=== PATIENT | female | born 1980 | race Caucasian/White ===

== ENCOUNTER 2017-07-21 14:57 | Observation (INO) ==
--- NOTE | 2017-07-21 22:09 | Internal Med History&Physical ---
<Kanwal Gerardo H - Last Filed: 07/21/17 23:15> Date of Encounter: 07/21/17 Time of Encounter: 22:00 Internal Medicine - H&P: HPI Chief complaint: Nausea, vomitting, and diarrhea Admitted From: Emergency Dept Plans for Post Hospital Care: Home History of present illness: Ms. Christian is a 36 year old female with PMHX of HLD, DM2, hypothyroidism, bipolar disorder, schizophrenia, and recent hospitalization end of June 2017 for pyelonephritis presented to [facility] on 07/21/2017 for 2.5 week history of watery diarrhea, nausea and vomitting. Patient describes an approximately 2-1/2 week history of approximately 10 watery dark-colored bowel movements per day. She reports intermittent nausea and occasional vomiting. She reports a few days of subjective fevers last week. She reports some exertional shortness of breath, but no orthopnea or lower extremity edema. She does also report a cough for the past week. She denies any chest pain, palpitations, or diaphoresis. She also reports dysuria, but denies gross hematuria. She denies any focal weaknesses, numbness, or paresthesia. She reports intermittent dizziness and fatigue. Patient states she was discharged home in early July with a course of levaquin for her UTI that she completed. She has seen her PCP, Dr. Borrero, several times since then as she reports recurrence of her UTI. She has underwent a full course of bactrim since then in addition to a rocephin shot. She finished her last dose of bactrim today. In [place] ED, patient's laboratory analysis demonstrated a WBC of 15.2, Hgb of 11.5, platelets of 514. Potassium was 2.9, bicarbonate 18, creatinine 1.46 and GFR 43. CRP was 1.2. Urinalysis demonstrated a large amount of leukocyte esterase, but negative nitrates. An x-ray of her abdomen was negative for acute process, or obstruction. Patient was given 40 mEq of oral potassium in a dose of meropenem while in the emergency department. Patient was unable to provide a stool sample for stool analysis welfare. Patient was subsequently transferred to [facility] earlier this evening. Past Med Surg Social Fam HX - Past Medical History Attestation: Yes The following information was validated with the patient. Source: patient Medical history: diabetes, GERD, hyperlipidemia, hypertension, thyroid disease Psychiatric history: anxiety, bipolar, depression - Past Surgical History Surgical History: cholecystectomy, hysterectomy - Social History Smoking Status: Never smoker Smokeless Tobacco Status: No Alcohol use: occasionally Drug use: none - Family History Father Living Status: Age at : 40 Cause of : Heart attack Hx Family Cardiac Disorders: Yes Internal Medicine - H&P: Meds Atomoxetine HCl [Strattera] 80 mg PO DAILY 11/23/16 [History] Fenofibrate Nanocrystallized [Triglide] 160 mg PO DAILY 11/23/16 [History] Levothyroxine [Synthroid] 75 mcg PO 0630 11/23/16 [History] [place] Carbonate 300 mg PO 1200 11/23/16 [History] [place] Carbonate 450 mg PO HS 11/23/16 [History] Loxapine Succinate [Loxapine] 50 mg PO HS 11/23/16 [History] Omeprazole [PriLOSEC] 20 mg PO BID 11/23/16 [History] Ondansetron HCl [Zofran] 4 mg PO Q8H 11/23/16 [History] SUMAtriptan Succinate [Imitrex] 100 mg PO PRN PRN 11/23/16 [History] lamoTRIgine [Lamotrigine] 200 mg PO HS 11/23/16 [History] metFORMIN [Glucophage] 1,000 mg PO BIDWM 11/23/16 [History] traZODone [TraZODone] 100 mg PO HS 11/23/16 [History] Benztropine [Cogentin] 2 mg PO BID #0 11/24/16 [Rx] clonazePAM [Klonopin] 1 mg PO BID #0 11/24/16 [Rx] 3 Allergy/AdvReac Type Severity Reaction Status Date / Time ibuprofen Allergy See Verified 11/23/16 10:05 Comments All Systems PM: A 10-system review of systems was performed and is negative for pertinent findings except as documented above in the HPI. - Constitutional Constitutional: malaise, weakness, no chills, no fever(s), no weight gain, no weight loss - EENT Eyes: no change in vision, no diplopia Nose, mouth and throat: no nasal congestion, no nasal discharge, no sinus pain, no sinus pressure - Cardiovascular Cardiovascular ROS IM: dyspnea on exertion, lightheadedness, no chest pain, no claudication, no diaphoresis, no dyspnea, no edema, no orthopnea, no palpitations, no paroxysmal nocturnal dyspnea - Respiratory Respiratory: cough, dyspnea, no chest congestion, no excessive phlegm production - Gastrointestinal Gastrointestinal: diarrhea (no blood or mucous present), nausea, vomiting, no abdominal pain, no coffee ground emesis, no hematemesis, no hematochezia - Genitourinary Genitourinary: dysuria, urinary frequency, no flank pain, no pelvic pain, no urinary urgency, no vaginal discharge - Musculoskeletal Musculoskeletal ROS IM: no muscle cramps, no numbness, no tingling - Integumentary Integumentary IM: no erythema, no rash - Neurological Neurological ROS: headache(s), weakness, no focal weakness, no numbness, no paresthesias, no radicular pain - Psychiatric Psychiatric: no auditory hallucinations, no hallucinations - Endocrine Endocrine IM: cold intolerance, no heat intolerance - Constitutional Vitals: Temp Pulse Resp BP Pulse Ox 98.6 F 87 14 140/83 100 07/21/17 18:54 07/21/17 18:54 07/21/17 18:54 07/21/17 18:54 07/21/17 18:54 General appearance: Present: A&O X 3, pleasant, no acute distress, answers questions appropriately - Head Head exam: Present: atraumatic, normocephalic - Eye Eye exam: Present: conjuntiva pink, sclera anicteric - Neck Neck exam general surgery: Present: supple, trachea midline. Absent: lymphadenopathy - Respiratory Respiratory exam: Present: CTAB. Absent: accessory muscle use, rales, rhonchi, wheezes - Cardiovascular Cardiovascular exam: Present: RRR, +S1, +S2. Absent: diastolic murmur, gallop, rubs, systolic murmur - GI/Abdominal GI/Abdominal exam: Present: normal bowel sounds, soft, tenderness (mild LUQ tenderness to deep palpation), no peritoneal signs. Absent: distended, firm, guarding, pulsatile mass, rebound Additional comments: No flank tenderness palpated. - Extremities Exam Extremities exam: Present: warm, radial pulses palpable and symmetrical. Absent : calf tenderness, cyanotic, pedal edema - Neurological Exam Neurological exam: Present: CN II-XII intact, oriented X3, no focal deficits. Absent: pronater drift, facial droop, speech deficit - Skin Skin exam: Present: dry, intact - Assessment and plan (1) Diarrhea Current Visit: Yes Status: Acute Assessment and plan: 36 yo female with recent hospitalization for pyelonephritis with protracted course of antibiotic treatment for what sounds like complicated cystitis. -Will continue IV hydration -Potassium repletion -FU magnesion, trend chemistries, CBC -C difficile toxin. If negative, will proceed with GI stool panel. Qualifiers: Diarrhea type: unspecified type Qualified Code(s): R19.7 - Diarrhea, unspecified (2) Urinary tract infection Current Visit: Yes Status: Acute Assessment and plan: Patient has been treated with 2 courses of antibiotics including levaquin, bactrim, and rocephin. -Will try to obtain previous urine culture from [place] with sensitivities. -Will order urine culture. -Rocephin 1 gram daily for now. Qualifiers: Urinary tract infection type: site unspecified Hematuria presence: without hematuria Qualified Code(s): N39.0 - Urinary tract infection, site not specified (3) Hypokalemia Current Visit: Yes Status: Acute Assessment and plan: Repletion with potassium. Patient received 40meq PO at [facility]. -Will get an additional 20meq IV tonight and recheck BMP in the AM. (4) Acute kidney injury Current Visit: Yes Status: Acute Assessment and plan: Patient's creatinine normal in November of 2016. From ER records from [place], her creatinine of 1.46 earlier today is trending down from recent injury. -Patient s/p 2 liters NS at outside facility. -will continue IV hydration and recheck BMP in the morning. (5) Nausea & vomiting Current Visit: Yes Status: Acute Assessment and plan: Resume home medication of zofran q8hr. Qualifiers: Vomiting type: unspecified Vomiting Intractability: non-intractable Qualified Code(s): R11.2 - Nausea with vomiting, unspecified (6) Diabetes Current Visit: Yes Status: Acute Assessment and plan: Will check A1c in the morning. Patient's glucose WNL at outside hospital. Patient states her metformin was recently discontinued while her "kidney's healed.' Qualifiers: Diabetes mellitus type: type 2 Diabetes mellitus fci insulin use: without termite control technician use Diabetes mellitus complication status: without complication Qualified Code(s): E11.9 - Type 2 diabetes mellitus without complications (7) DVT prophylaxis Current Visit: Yes Status: Acute Assessment and plan: heparin SQ 5000 units BID. - Time Spent With Patient Total time spent is greater than 50% in coordination of care (as documented) at patient's floor/unit and/or counseling patient: <Blanche Trevino - Last Filed: 07/22/17 00:05> Date of Encounter: 07/22/17 Internal Medicine - H&P: HPI History of present illness: Ms. Christian is a 36 year old female All Systems PM: A 10-system review of systems was performed and is negative for pertinent findings except as documented above in the HPI. - Constitutional Vitals: Temp Pulse Resp BP Pulse Ox 98.0 F 80 16 140/97 100 07/21/17 22:58 07/21/17 22:58 07/21/17 22:58 07/21/17 22:58 07/21/17 22:58 - Attending Attestation I examined this patient and my medical decision-making was reviewed with the Resident Physician. I agree with the documented findings, disposition and treatment plan as described except to the extent set forth below. - Time Spent With Patient Total time spent is greater than 50% in coordination of care (as documented) at patient's floor/unit and/or counseling patient:
[2017-07-21] MEDS ORDERED: Naloxone 0.4 MG/ML INJ IVP PRN (22:31)
[2017-07-21] MEDS ORDERED: Potassium Chloride 20 MEQ, Lidocaine 1% 2 ML in D5% in Water 250 ML IVPB ONE (22:36)
[2017-07-21] MEDS: Ondansetron ODT 4 MG TAB.RAPDIS PO SCH (23:21)
[2017-07-22] MEDS: Acetaminophen 325 MG TABLET PO PRN ×3 (00:43→21:45)
[2017-07-22] MEDS: Ondansetron ODT 4 MG TAB.RAPDIS PO SCH ×3 (06:00→21:45)
[2017-07-22] MEDS: *HR* Heparin 5,000 UNIT/ML VIAL SQ SCH ×2 (06:00→18:38)
[2017-07-22 06:16] LABS: Basophils # 0.1 K/mcL (0.0-0.2); Eosinophils # 0.8 K/mcL (0.0-0.6); Eosinophils % 7.2 %; Hematocrit 30.3 % (35.3-44.9); Hemoglobin 9.7 g/dL (11.5-15.4); Immature Granulocytes % 1.1 % (0-4); Mean Corpuscular Hemoglobin 26.3 pg (28.0-33.3); Mean Corpuscular Volume 82.1 fL (83.0-100.0); Mean Platelet Volume 8.9 fL (9.4-12.4); Monocytes # 0.9 K/mcL (0.0-1.3); Monocytes % 7.8 %; Neutrophils # 5.5 K/mcL (1.6-8.9); Platelet Count 322 K/mcL (140-400); Red Blood Count 3.69 M/mcL (3.82-4.97); Red Cell Distribution Width 15.4 % (11.5-14.5); Segmented Neutrophils % 47.9 %
[2017-07-22 06:35] LABS: Albumin 3.3 g/dL (3.5-5.7); Albumin/Globulin Ratio 0.9 (1.1-2.2); Bilirubin,Total 0.5 mg/dL (0.3-1.0); Calcium 8.7 mg/dL (8.6-10.3); Globulin 3.6 g/dL (2.4-3.5); Potassium 3.3 mEq/L (3.5-5.1); Total Protein 6.9 g/dL (6.4-8.9)
[2017-07-22 08:28] LABS: Estimated Average Glucose 103 mg/dl; Hemoglobin A1C 5.2 %
[2017-07-22] MEDS: cefTRIAXone 1,000 MG in Water for inj. (sterile) 20 ML 10 ML IVP SCH (08:34)
--- NOTE | 2017-07-22 10:33 | Internal Med Progress Note ---
<Nasreen Boss - Last Filed: 07/22/17 15:37> Date of Encounter: 07/22/17 Time of Encounter: 09:35 - Assessment and plan (1) Urinary tract infection Current Visit: Yes Status: Acute Assessment and plan: -treated with multiple antibiotics (including levaquin, bactrim, meropenem, and rocephin) for what seems to be a recurring UTI -Urinalysis done at [facility] ED showed large amount of leukocyte esterase, nitrites negative -Obtain previous urine culture and sensitivities from [facility]. -Results of urine culture pending -Rocephin 1 gram daily for now. Qualifiers: Urinary tract infection type: site unspecified Hematuria presence: without hematuria Qualified Code(s): N39.0 - Urinary tract infection, site not specified (2) Diarrhea Current Visit: Yes Status: Acute Assessment and plan: -Hospitalized in June for pyelonephritis, on discharge was sent home with Levaquin; since that time has received multiple antibiotics for UTI -Will continue IV hydration -Potassium repletion as needed -1 g magnesium given IV, will recheck magnesium tomorrow morning -C difficile toxin negative. GI stool panel pending Qualifiers: Diarrhea type: unspecified type Qualified Code(s): R19.7 - Diarrhea, unspecified (3) Hypokalemia Current Visit: Yes Status: Acute Assessment and plan: -Potassium this morning 3.3, was given 20 mEq potassium IV last night -40 mEq potassium elixir ordered -Replace potassium as needed (4) Acute kidney injury Current Visit: Yes Status: Acute Assessment and plan: -SCr 1.38 today, improved from yesterday -IVF hydration -recheck BMP in the morning. (5) Nausea & vomiting Current Visit: Yes Status: Acute Assessment and plan: -Continue zofran Q8H. Qualifiers: Vomiting type: unspecified Vomiting Intractability: non-intractable Qualified Code(s): R11.2 - Nausea with vomiting, unspecified (6) DVT prophylaxis Current Visit: Yes Status: Acute Assessment and plan: heparin SQ 5000 units BID. (7) Diabetes Current Visit: Yes Status: Acute Assessment and plan: -HgbA1c 5.2% Qualifiers: Diabetes mellitus type: type 2 Diabetes mellitus prison insulin use: without prison use Diabetes mellitus complication status: without complication Qualified Code(s): E11.9 - Type 2 diabetes mellitus without complications - Time Spent With Patient Total time spent is greater than 50% in coordination of care (as documented) at patient's floor/unit and/or counseling patient: - Subjective Interval history: Seen and examined this morning at bedside. Pt feels ok today. States she's had 4 episodes watery, dark brown diarrhea already today. Reports RUQ pain and L sided abdominal pain that extends into her back, pain described as a contant "pulling." Complains of headache and nausea, but denies shortness of breath, chest pain, hematuria, fevers, chills, hematuria. Reports burning pain with urination. - Constitutional Vitals: Temp Pulse Resp BP Pulse Ox 97.9 F 77 18 107/78 98 07/22/17 10:08 07/22/17 10:08 07/22/17 10:08 07/22/17 10:08 07/22/17 10:08 General appearance: Present: A&O X 3, pleasant, no acute distress, answers questions appropriately - Other Additional findings: General: AAOx3, No acute distress, resting comfortably in bed HEENT: PERRL/ EOMI, moist mucus membranes, non traumatic, normocephalic Neck: Supple, Cardio: RRR, no murmurs, S1/S2+ Pulm: CTAB, no wheezing. Normal respiratory effort. Abdomen: soft, tender to palpation of RUQ and L side of abdomen, BS+, no rebound, rigidity, guarding, distention Extremities: No lower extremitiy edema, no calf tenderness, no cyanosis, clubbing Back: No CVA tenderness bilaterally Neuro: AAOx3, no focal neurological defecit, mentation intact MSK: No deformity, spontaneous movement of extremities Psych: Appropriate mood and affect. Answers questions appropriately. Cooperative with exam Internal Medicine: Result - Labs CBC & Chem 7: 07/22/17 05:46 07/22/17 05:46 Labs: Short CBC 07/22/17 Range/Units 05:46 WBC 11.5 H (4.3-11.1) K/mcL Hgb 9.7 L (11.5-15.4) g/dL Hct 30.3 L (35.3-44.9) % Plt Count 322 (140-400) K/mcL Neutrophils # 5.5 (1.6-8.9) K/mcL BMP 07/22/17 05:46 Sodium 137 Potassium 3.3 L Chloride 112 H Carbon Dioxide 18 L BUN 7 Creatinine 1.38 H Glucose 93 Calcium 8.7 Liver Function 07/22/17 Range/Units 05:46 Total Bilirubin 0.5 (0.3-1.0) mg/dL AST 24 (13-39) Units/L ALT 18 (7-52) Units/L Alkaline Phosphatase 105 H (34-104) Units/L Albumin 3.3 L (3.5-5.7) g/dL Consult Discharge Plan - Plan Referrals: Del Borrero MD [Primary Care Provider] - <Momo Zapien - Last Filed: 07/22/17 16:53> Date of Encounter: 07/22/17 - Assessment and plan (1) Urinary tract infection Current Visit: Yes Status: Acute Qualifiers: Urinary tract infection type: site unspecified Hematuria presence: without hematuria Qualified Code(s): N39.0 - Urinary tract infection, site not specified (2) Diarrhea Current Visit: Yes Status: Acute Qualifiers: Diarrhea type: unspecified type Qualified Code(s): R19.7 - Diarrhea, unspecified (3) Hypokalemia Current Visit: Yes Status: Acute (4) Acute kidney injury Current Visit: Yes Status: Acute (5) Nausea & vomiting Current Visit: Yes Status: Acute Qualifiers: Vomiting type: unspecified Vomiting Intractability: non-intractable Qualified Code(s): R11.2 - Nausea with vomiting, unspecified (6) DVT prophylaxis Current Visit: Yes Status: Acute (7) Diabetes Current Visit: Yes Status: Acute Qualifiers: Diabetes mellitus type: type 2 Diabetes mellitus computer terminal operator insulin use: without computer terminal operator use Diabetes mellitus complication status: without complication Qualified Code(s): E11.9 - Type 2 diabetes mellitus without complications - Time Spent With Patient Total time spent is greater than 50% in coordination of care (as documented) at patient's floor/unit and/or counseling patient: - Constitutional Vitals: Temp Pulse Resp BP Pulse Ox 98.4 F 93 18 131/83 96 07/22/17 15:37 07/22/17 15:37 07/22/17 15:37 07/22/17 15:37 07/22/17 15:37 Internal Medicine: Result - Labs CBC & Chem 7: 07/22/17 05:46 07/22/17 05:46 Labs: Short CBC 07/22/17 Range/Units 05:46 WBC 11.5 H (4.3-11.1) K/mcL Hgb 9.7 L (11.5-15.4) g/dL Hct 30.3 L (35.3-44.9) % Plt Count 322 (140-400) K/mcL Neutrophils # 5.5 (1.6-8.9) K/mcL BMP 07/22/17 05:46 Sodium 137 Potassium 3.3 L Chloride 112 H Carbon Dioxide 18 L BUN 7 Creatinine 1.38 H Glucose 93 Calcium 8.7 Liver Function 07/22/17 Range/Units 05:46 Total Bilirubin 0.5 (0.3-1.0) mg/dL AST 24 (13-39) Units/L ALT 18 (7-52) Units/L Alkaline Phosphatase 105 H (34-104) Units/L Albumin 3.3 L (3.5-5.7) g/dL - Impressions Impressions Abdomen/Pelvis CT 07/22/17 14:30 IMPRESSION: No evidence of acute process within the abdomen or pelvis. No obstructive uropathy is evident. Normal appendix. Cholecystectomy and hysterectomy. Splenomegaly. Small 1.5 cm hypodense lesion within the anterior aspect of the spleen is nonspecific but likely benign. D/ / 07/22/2017 15:32:25 Pablo Anderson MD / talat Interpreting Provider: Pablo Anderson MD - Attending Attestation I examined this patient and my medical decision-making was reviewed with the Resident Physician Dr. Boss. I agree with the documented findings, disposition and treatment plan as described except to the extent set forth below. Ms. Christian is a 36 year old female with PMHX of HLD, DM2, hypothyroidism, bipolar disorder, schizophrenia, and recent hospitalization end of June 2017 for pyelonephritis presented to [facility] on 07/21/2017 for 2.5 week history of watery diarrhea, nausea and vomitting. Pt was admitted here for UTI and diarrhea. She does c/o lower abdomen pain with severe nausea. General: A, A, O x 3 Chest: CTA Abd: Soft, mild discomfort in lower abdomen and sarah umbelical region a/p 1. Acute UTI cont Rocephin 2. Acute diarrhea - ?/ Colitis will check CT of Abd C. Diff negative
[2017-07-22] MEDS ORDERED: Potassium Chloride Elixir 20 MEQ/15 ML UDC PO ONE (11:39)
[2017-07-22] MEDS: SUMAtriptan succinate 50 MG TABLET PO PRN ×2 (12:08→18:42)
[2017-07-22] MEDS ORDERED: lamoTRIgine 100 MG TABLET PO SCH (21:00)
[2017-07-22] MEDS ORDERED: lamoTRIgine 25 MG TABLET PO SCH (21:00)
[2017-07-22] MEDS ORDERED: LOXAPINE SUCCINATE 25 MG PO SCH (21:00)
[2017-07-22] MEDS: clonazePAM 1 MG TABLET PO SCH (21:45)
[2017-07-23 05:31] LABS: Hemoglobin 10.2 g/dL (11.5-15.4); Mean Corpuscular HGB Conc 31.9 g/dL (31.6-35.5); Mean Corpuscular Hemoglobin 26.4 pg (28.0-33.3); Mean Corpuscular Volume 82.9 fL (83.0-100.0); Mean Platelet Volume 8.5 fL (9.4-12.4); Platelet Count 327 K/mcL (140-400); Red Blood Count 3.86 M/mcL (3.82-4.97); Red Cell Distribution Width 15.5 % (11.5-14.5)
[2017-07-23] MEDS: Acetaminophen 325 MG TABLET PO PRN (05:49)
[2017-07-23] MEDS: Ondansetron ODT 4 MG TAB.RAPDIS PO SCH (05:49)
[2017-07-23] MEDS: *HR* Heparin 5,000 UNIT/ML VIAL SQ SCH (05:49)
[2017-07-23] MEDS: SUMAtriptan succinate 50 MG TABLET PO PRN ×2 (05:49→08:50)
[2017-07-23 05:51] LABS: Calcium 9.1 mg/dL (8.6-10.3); Magnesium 2.1 mg/dL (1.6-2.6); Potassium 3.6 mEq/L (3.5-5.1)
[2017-07-23 08:13] VITALS: BP 110/75
[2017-07-23] MEDS: cefTRIAXone 1,000 MG in Water for inj. (sterile) 20 ML 10 ML IVP SCH (08:42)
[2017-07-23] MEDS: clonazePAM 1 MG TABLET PO SCH (08:45)
[2017-07-23] MEDS ORDERED: Lithium Carbonate 300 MG CAPSULE PO SCH (09:00)
--- NOTE | 2017-07-23 09:32 | Internal Med Progress Note ---
Date of Encounter: 07/23/17 Time of Encounter: 09:24 - Assessment and plan (1) Urinary tract infection Current Visit: Yes Status: Acute Assessment and plan: -Urine culture final results show no growth -Stop rocephin Qualifiers: Urinary tract infection type: site unspecified Hematuria presence: without hematuria Qualified Code(s): N39.0 - Urinary tract infection, site not specified (2) Diarrhea Current Visit: Yes Status: Acute Assessment and plan: -Will continue IV hydration -Potassium repletion as needed -Magnesium within normal limits, replete PRN -C difficile toxin negative -GI stool panel pending Qualifiers: Diarrhea type: unspecified type Qualified Code(s): R19.7 - Diarrhea, unspecified (3) Hypokalemia Current Visit: Yes Status: Resolved Assessment and plan: -resolved -Replace potassium as needed (4) Acute kidney injury Current Visit: Yes Status: Acute Assessment and plan: -SCr 1.36 today, slight improvement from yesterday -Suspect this may be acute on chronic kidney disease -Pt takes lithium, check lithium level -IVF hydration (5) Nausea & vomiting Current Visit: Yes Status: Acute Qualifiers: Vomiting type: unspecified Vomiting Intractability: non-intractable Qualified Code(s): R11.2 - Nausea with vomiting, unspecified (6) Diabetes Current Visit: Yes Status: Acute Qualifiers: Diabetes mellitus type: type 2 Diabetes mellitus penitentiary insulin use: without laborer marine terminal use Diabetes mellitus complication status: without complication Qualified Code(s): E11.9 - Type 2 diabetes mellitus without complications (7) DVT prophylaxis Current Visit: Yes Status: Acute - Time Spent With Patient Total time spent is greater than 50% in coordination of care (as documented) at patient's floor/unit and/or counseling patient: - Subjective Interval history: Seen and examined this morning at bedside. Pt feels ok today. States she's continued to have watery, dark brown diarrhea. Reports abdominal discomfort unchanged from yesterday, not made better or worse with eating. Complains of headache and nausea remain; the nausea isn't better or worse with food and she is tolerating diet well. Denies shortness of breath, chest pain, hematuria, fevers, chills, hematuria. Reports discomfort with urination; denies burning or itching sensation. - Constitutional Vitals: Temp Pulse Resp BP Pulse Ox 97.9 F 66 16 110/75 97 07/23/17 08:01 07/23/17 08:01 07/23/17 08:01 07/23/17 08:01 07/23/17 08:01 General appearance: Present: A&O X 3, pleasant, no acute distress, answers questions appropriately - Other Additional findings: General: AAOx3, No acute distress, resting comfortably in bed HEENT: PERRL/ EOMI, moist mucus membranes, non traumatic, normocephalic Neck: Supple, FROM Cardio: RRR, no murmurs, S1/S2 Pulm: CTAB, no wheezing, rhonchi, rales. Normal respiratory effort. Abdomen: soft, nontender, BS+, no rebound, rigidity, guarding, distention Extremities: No lower extremitiy edema, no calf tenderness, no cyanosis Back: reported tenderness on palpation of paraspinal muscles and spinous processes of lower back, reported bilateral CVA tenderness Neuro: AAOx3, no focal neurological defecit, CN II-XII intact grossly MSK: Strength 5/5 throughout Psych: Appropriate mood and affect. Answers questions appropriately. Cooperative with exam Internal Medicine: Result - Labs CBC & Chem 7: 07/23/17 05:19 07/23/17 05:19 Labs: Short CBC 07/23/17 Range/Units 05:19 WBC 9.4 (4.3-11.1) K/mcL Hgb 10.2 L (11.5-15.4) g/dL Hct 32.0 L (35.3-44.9) % Plt Count 327 (140-400) K/mcL [facility] 07/23/17 05:19 Sodium 141 Potassium 3.6 Chloride 115 H Carbon Dioxide 21 L BUN 6 Creatinine 1.36 H Glucose 89 Calcium 9.1 - Impressions Impressions Abdomen/Pelvis CT 07/22/17 14:30 IMPRESSION: No evidence of acute process within the abdomen or pelvis. No obstructive uropathy is evident. Normal appendix. Cholecystectomy and hysterectomy. Splenomegaly. Small 1.5 cm hypodense lesion within the anterior aspect of the spleen is nonspecific but likely benign. D/ / 07/22/2017 15:32:25 Pablo Anderson MD / talat Interpreting Provider: Pablo Anderson MD Consult Discharge Plan - Plan Referrals: Del Borrero MD [Primary Care Provider] -
--- NOTE | 2017-07-23 11:09 | Discharge Summary ---
<Nasreen Boss - Last Filed: 07/23/17 14:27> Orders not resulted at time of discharge: Pending orders 07/22/17 11:45 GI Panel,Stool [MOLMIC] Routine Date of Encounter: 07/23/17 Time of Encounter: 11:08 - Discharge Diagnosis (1) Urinary tract infection Priority: Secondary Status: Acute Qualifiers: Urinary tract infection type: site unspecified Hematuria presence: without hematuria Qualified Code(s): N39.0 - Urinary tract infection, site not specified (2) Diarrhea Priority: Primary Status: Acute Qualifiers: Diarrhea type: unspecified type Qualified Code(s): R19.7 - Diarrhea, unspecified (3) Hypokalemia Priority: Secondary Status: Resolved (4) Acute kidney injury Priority: Secondary Status: Acute (5) Nausea & vomiting Priority: Secondary Status: Acute Qualifiers: Vomiting type: unspecified Vomiting Intractability: non-intractable Qualified Code(s): R11.2 - Nausea with vomiting, unspecified (6) DVT prophylaxis Priority: Secondary Status: Acute (7) Diabetes Priority: Secondary Status: Acute Qualifiers: Diabetes mellitus type: type 2 Diabetes mellitus longterm insulin use: without longterm use Diabetes mellitus complication status: without complication Qualified Code(s): E11.9 - Type 2 diabetes mellitus without complications Hospital course: Ms. Christian is a 36 year old female who presented to [place] from [facility] with complaints of watery diarrhea x 2.5 weeks and dysuria. Lab work from [facility] demonstrated WBC 15.2, potassium 2.9, creatinine 1.46, urinalysis showed large amount leukocyte esterase with negative nitrites. On arrival patient was afebrile, BP 140/83, and all other vital signs within normal limits. Her blood work was rechecked and showed WBC 11.5, serum creatinine 1.38. There was concern for possibility of C. difficile, but C. difficile toxin B was negative. For her UTI the patient was placed on empiric IV Rocephin while urine culture results were being waited for. Patient had complaints of right upper quadrant and left-sided abdominal pain, CT abdomen pelvis revealed no evidence of an acute process within the abdomen or the pelvis. On the day of discharge patient 's WBC was back within normal limits (9.4), her hypokalemia resolved, and her serum creatinine improved slightly. [place] level was checked and found to be less than 0.1, suggesting that her elevated serum creatinine during her stay was not due to lithium toxicity. Her physical exams were unremarkable during her admission. Final interpretation of her urine culture revealed no growth, IV Rocephin was discontinued, and patient was medically stable for discharge home. - Time Spent with Patient Total time spent providing and/or coordinating discharge services: - Discharge Medications Home Medications: Fenofibrate Nanocrystallized [Triglide] 160 mg PO DAILY 11/23/16 [History] Levothyroxine [Synthroid] 75 mcg PO 0630 11/23/16 [History] Loxapine Succinate [Loxapine] 25 mg PO HS 11/23/16 [History] SUMAtriptan Succinate [Imitrex] 100 mg PO AD PRN 11/23/16 [History] Benztropine [Cogentin] 2 mg PO BID #0 11/24/16 [Rx] clonazePAM [Klonopin] 1 mg PO BID #0 11/24/16 [Rx] Acetaminophen [Tylenol] 650 mg PO Q6HR PRN 07/22/17 [History] [place] Carbonate 300 mg PO DAILY 07/22/17 [History] hydrOXYzine HCl [Hydroxyzine HCl] 50 mg PO HS 07/22/17 [History] lamoTRIgine [Lamictal] 150 mg PO HS 07/22/17 [History] Allergies/Adverse Reactions: 3 Allergy/AdvReac Type Severity Reaction Status Date / Time ibuprofen Allergy Hives Verified 07/22/17 08:53 Date of admission: 07/21/17 18:43 Primary care physician: Del Borrero, Discharging clinician: Nasreen Boss Anticipated date of discharge: 07/23/17 - Constitutional Vitals: Temp Pulse Resp BP Pulse Ox 97.9 F 66 16 110/75 97 07/23/17 08:01 07/23/17 08:01 07/23/17 08:01 07/23/17 08:01 07/23/17 08:01 General appearance: Present: A&O X 3, pleasant, no acute distress, answers questions appropriately - Other Additional findings: General: AAOx3, No acute distress, resting comfortably in bed HEENT: PERRL/ EOMI, moist mucus membranes, non traumatic, normocephalic Neck: Supple, FROM Cardio: RRR, no murmurs, S1/S2 Pulm: CTAB, no wheezing, Normal respiratory effort. Abdomen: soft, nontender, BS+, non-distended Extremities: No lower extremitiy edema, no cyanosis, clubbing Back: Lumbar paraspinal muscles tender to palpation; no hypertonicity, warrmth, erythema of lumbar paraspinal muscles Neuro: AAOx3, no focal neurological defecit, normal gait, CN II-XII intact grossly MSK: Strength 5/5 throughout Psych: Appropriate mood and affect. Answers questions appropriately. Cooperative with exam - Patient Status Disposition: Home, Self-Care Condition: Good Overall status at discharge: patient is progressing back to baseline - Discharge Instructions Instructions: Urinary Tract Infection in Women (DC) Follow Up With: Del Borrero MD [Primary Care Provider] - Forms: Inpatient Work/School Release Additional Instructions: Follow-up with your PCP in 7-10 days Take all your medications as prescribed If you develop fever/chills, nausea/vomiting, difficulty breathing, shortness of breath, chest pain, or your symptoms worsen, call your PCP or return to the emergency department - Diet and Activity Activity: resume usual activities as tolerated Diet: advance to your usual diet <Momo Zapien - Last Filed: 07/23/17 15:24> Orders not resulted at time of discharge: Pending orders 07/22/17 11:45 GI Panel,Stool [MOLMIC] Routine Date of Encounter: 07/23/17 - Discharge Diagnosis (1) Urinary tract infection Status: Acute Qualifiers: Urinary tract infection type: site unspecified Hematuria presence: without hematuria Qualified Code(s): N39.0 - Urinary tract infection, site not specified (2) Diarrhea Status: Acute Qualifiers: Diarrhea type: unspecified type Qualified Code(s): R19.7 - Diarrhea, unspecified (3) Hypokalemia Status: Resolved (4) Acute kidney injury Status: Acute (5) Nausea & vomiting Status: Acute Qualifiers: Vomiting type: unspecified Vomiting Intractability: non-intractable Qualified Code(s): R11.2 - Nausea with vomiting, unspecified (6) DVT prophylaxis Status: Acute (7) Diabetes Status: Acute Qualifiers: Diabetes mellitus type: type 2 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 Christian is a 36 year old female - Time Spent with Patient Total time spent providing and/or coordinating discharge services: Date of admission: 07/21/17 18:43 Primary care physician: Del Borrero, - Constitutional Vitals: Temp Pulse Resp BP Pulse Ox 97.9 F 66 16 110/75 97 07/23/17 08:01 07/23/17 08:01 07/23/17 08:01 07/23/17 08:01 07/23/17 08:01 - Attending Attestation I examined this patient and my medical decision-making was reviewed with the Resident Physician Dr. Boss. I agree with the documented findings, disposition and treatment plan as described except to the extent set forth below. Ms. Christian is a 36 year old female with PMHX of HLD, DM2, hypothyroidism, bipolar disorder, schizophrenia, and recent hospitalization end of June 2017 for pyelonephritis presented to [facility] on 07/21/2017 for 2.5 week history of watery diarrhea, nausea and vomitting. Pt was admitted here for UTI and diarrhea. She does c/o lower abdomen pain with severe nausea. General: A, A, O x 3 Chest: CTA Abd: Soft, mild discomfort in lower abdomen and sarah umbelical region a/p 1. Acute UTI Urine cx - no growth d/c abx 2. Acute diarrhea CT of abd - no acute process noticed C. Diff negative
== END 2017-07-23 12:28 | disposition home or self-care (01) ==
LOC: INTOOBSV 18:43 → 3ANU 18:43
PROVIDERS: ADMIT Family Medicine; ATTEND Family Medicine

== ENCOUNTER 2019-02-07 15:10 | Observation (INO) ==
[2019-02-07] MEDS ORDERED: predniSONE 20 MG TABLET PO ONE (15:43)
[2019-02-07] MEDS ORDERED: Ipratropium/Albuterol Neb 3 ML IH ONE (15:43)
[2019-02-07] MEDS ORDERED: Ipratropium/Albuterol Neb 3 ML ONE (15:44)
[2019-02-07 16:20] LABS: Basophils # 0.1 K/mcL (0.0-0.2); Basophils % 0.6 %; Eosinophils % 0.1 %; Hematocrit 36.5 % (35.3-44.9); Hemoglobin 11.5 g/dL (11.5-15.4); Immature Granulocytes % 4.9 % (0-4); Lymphocytes % 8.6 %; Mean Corpuscular HGB Conc 31.5 g/dL (31.6-35.5); Mean Corpuscular Hemoglobin 27.6 pg (28.0-33.3); Mean Corpuscular Volume 87.7 fL (83.0-100.0); Mean Platelet Volume 9.4 fL (9.4-12.4); Monocytes # 1.3 K/mcL (0.0-1.3); Monocytes % 5.6 %; Nucleated Red Blood Cells 0.1 /100 WBC (0); Platelet Count 363 K/mcL (140-400); Red Blood Count 4.16 M/mcL (3.82-4.97); Red Cell Distribution Width 14.6 % (11.5-14.5); Segmented Neutrophils % 80.2 %; White Blood Count 23.7 K/mcL (4.3-11.1)
[2019-02-07 16:53] LABS: BUN/Creatinine Ratio 23 (6-26); Blood Urea Nitrogen 26 mg/dL (6-20); Carbon Dioxide 23 mEq/L (23-29); Chloride 108 mEq/L (98-107); Glucose 116 mg/dL (70-105); Osmolality,Calculated 296 (280-300); Potassium 4.7 mEq/L (3.5-5.1); Sodium 140 mEq/L (136-145); Troponin I 0.03 ng/mL (< 0.04); eGFR For African Americans > 60 (> 60); eGFR For Non-African Americans 53 (> 60)
[2019-02-07] MEDS ORDERED: Ondansetron ODT 4 MG TAB.RAPDIS SL PRN (17:06)
[2019-02-07] MEDS ORDERED: Ondansetron 4 MG/2 ML VIAL IVP PRN (17:06)
[2019-02-07] MEDS ORDERED: Naloxone 0.4 MG/ML INJ IVP PRN (17:06)
[2019-02-07 18:20] LABS: VBG Base Excess 0 mEq/L; VBG Chloride 109 mEq/L (98-107); VBG Glucose 131 mg/dl (65-95); VBG HCO3 26 mEq/L (21-27); VBG Ionized Calcium 1.25 mmol/L (1.15-1.35); VBG Oxygen Saturation 98 %; VBG PCO2 47 mmHg (41-51); VBG PH 7.35 pH Units (7.32-7.42); VBG PO2 111 mmHg (25-50); VBG Total CO2 27 mEq/L
[2019-02-07] MEDS: Ipratropium/Albuterol Neb 3 ML IH SCH ×2 (19:43→23:55)
[2019-02-07] MEDS: MethylPREDNISolone 40 MG/ML VIAL IVP SCH (21:11)
[2019-02-07] MEDS ORDERED: Acetaminophen 325 MG TABLET PO ONE (21:56)
[2019-02-08] MEDS: MethylPREDNISolone 40 MG/ML VIAL IVP SCH ×4 (00:03→17:32)
[2019-02-08 00:10] LABS: Adenovirus Not Detected (Not Detect); Bordetella Pertussis Not Detected (Not Detect); Chlamydophila pneumoniae Not Detected (Not Detect); Coronavirus 229E Not Detected (Not Detect); Coronavirus HKU1 Not Detected (Not Detect); Coronavirus NL63 Not Detected (Not Detect); Coronavirus OC43 Not Detected (Not Detect); Human Metapneumovirus Not Detected (Not Detect); Human Rhinovirus/Enterovirus Not Detected (Not Detect); Influenza A Subtype 2009 H1 Not Detected (Not Detect); Influenza A Untypeable Not Detected (Not Detect); Influenza B Not Detected (Not Detect); Mycoplasma pneumoniae Not Detected (Not Detect); Parainfluenza Virus 1 Not Detected (Not Detect); Parainfluenza Virus 2 Not Detected (Not Detect); Parainfluenza Virus 3 Not Detected (Not Detect); Parainfluenza Virus 4 Not Detected (Not Detect); Respiratory Syncytial Virus Not Detected (Not Detect)
[2019-02-08] MEDS: Ipratropium/Albuterol Neb 3 ML IH SCH ×6 (03:53→23:32)
[2019-02-08 05:54] LABS: Hematocrit 36.5 % (35.3-44.9); Hemoglobin 11.5 g/dL (11.5-15.4); Mean Corpuscular HGB Conc 31.5 g/dL (31.6-35.5); Mean Corpuscular Hemoglobin 27.4 pg (28.0-33.3); Mean Corpuscular Volume 87.1 fL (83.0-100.0); Platelet Count 347 K/mcL (140-400); Red Blood Count 4.19 M/mcL (3.82-4.97); Red Cell Distribution Width 14.5 % (11.5-14.5); White Blood Count 21.8 K/mcL (4.3-11.1)
[2019-02-08 05:55] LABS: Neutrophils # 17.9 K/mcL (1.6-8.9); Nucleated Red Blood Cells 0.1 /100 WBC (0)
[2019-02-08] MEDS ORDERED: Acetaminophen 325 MG TABLET PO ONE (06:06)
[2019-02-08 06:13] LABS: Lymphocytes # 2.2 K/mcL (0.6-4.6); Monocytes # 1.3 K/mcL (0.0-1.3)
[2019-02-08 06:14] LABS: Platelet Estimate Normal (Normal)
[2019-02-08 06:19] LABS: BUN/Creatinine Ratio 25 (6-26); Blood Urea Nitrogen 29 mg/dL (6-20); Calcium 9.2 mg/dL (8.6-10.3); Carbon Dioxide 26 mEq/L (23-29); Chloride 104 mEq/L (98-107); Glucose 136 mg/dL (70-105); Osmolality,Calculated 296 (280-300); Potassium 4.8 mEq/L (3.5-5.1); Sodium 139 mEq/L (136-145); eGFR For African Americans > 60 (> 60); eGFR For Non-African Americans 51 (> 60)
[2019-02-08] MEDS ORDERED: (Rizatriptan Benzoate [Maxalt Mlt] 10 MG) PO PRN (11:24)
[2019-02-08] MEDS ORDERED: Pantoprazole 40 MG VIAL IVP ONE (13:30)
[2019-02-08] MEDS ORDERED: GI Cocktail 40 ML EACH PO ONE (13:30)
[2019-02-08] MEDS ORDERED: SUMAtriptan succinate 50 MG TABLET PO ONE (15:02)
[2019-02-08] MEDS: clonazePAM 1 MG TABLET PO SCH (20:18)
[2019-02-09] MEDS ORDERED: Ipratropium/Albuterol Neb 3 ML IH ONE (00:21)
[2019-02-09] MEDS ORDERED: Ipratropium/Albuterol Neb 3 ML ONE (00:23)
[2019-02-09] MEDS: traZODone 50 MG TABLET PO PRN ×2 (00:59→20:40)
[2019-02-09] MEDS: MethylPREDNISolone 40 MG/ML VIAL IVP SCH ×3 (00:59→11:43)
[2019-02-09] MEDS: Ipratropium/Albuterol Neb 3 ML IH SCH ×6 (03:18→23:50)
[2019-02-09] MEDS: *HR* Enoxaparin 40 MG/0.4 ML SYRINGE SQ SCH (05:52)
[2019-02-09] MEDS: clonazePAM 1 MG TABLET PO SCH ×2 (09:01→20:39)
[2019-02-09] MEDS: Fenofibrate 54 MG TABLET PO SCH (09:01)
[2019-02-09] MEDS ORDERED: Isovue-370 500 ML BOTTLE IVP ONE (10:54)
[2019-02-09] MEDS: *HR* OxyCODONE Immed Rel 5 MG TABLET PO PRN ×2 (11:06→15:00)
[2019-02-09 16:02] LABS: Albumin 3.6 g/dL (3.5-5.7); Albumin/Globulin Ratio 1.3 (1.1-2.2); Bilirubin,Direct 0.2 mg/dL (0.0-0.2); Bilirubin,Indirect 0.3 mg/dL (0.0-1.0); Bilirubin,Total 0.5 mg/dL (0.3-1.0); Globulin 2.8 g/dL (2.4-3.5); Total Protein 6.4 g/dL (6.4-8.9)
[2019-02-09] MEDS: *HR* HYDROcodone/Acet 5/325 mg TABLET PO PRN (18:01)
[2019-02-09] MEDS: Pantoprazole 40 MG VIAL IVP SCH (18:02)
[2019-02-09] MEDS: Budesonide/Formoterol 160/4.5 1 PUFF INH IH SCH (19:51)
[2019-02-09] MEDS ORDERED: SUMAtriptan succinate 25 MG TABLET PO ONE ×2 (23:26)
[2019-02-10] MEDS: Ipratropium/Albuterol Neb 3 ML IH SCH ×2 (03:35→07:45)
[2019-02-10] MEDS: Pantoprazole 40 MG VIAL IVP SCH (05:59)
[2019-02-10] MEDS: *HR* Enoxaparin 40 MG/0.4 ML SYRINGE SQ SCH (05:59)
[2019-02-10] MEDS: *HR* HYDROcodone/Acet 5/325 mg TABLET PO PRN (06:03)
[2019-02-10] MEDS: Budesonide/Formoterol 160/4.5 1 PUFF INH IH SCH (07:45)
[2019-02-10 07:59] VITALS: BP 115/76
[2019-02-10] MEDS: Fenofibrate 54 MG TABLET PO SCH (08:21)
[2019-02-10] MEDS: clonazePAM 1 MG TABLET PO SCH (08:22)
[2019-02-10] MEDS ORDERED: predniSONE 20 MG TABLET PO SCH (09:00)
== END 2019-02-10 10:33 | disposition home or self-care (01) ==
LOC: 3BNU 15:10 → EMEROOARM 15:10 → 3BNU 20:06
PROVIDERS: ADMIT Student in an Organized Health Care Education/Training Program; ATTEND Student in an Organized Health Care Education/Training Program